=== PATIENT | male | born 2000 | race Two or more races ===

== ENCOUNTER 2025-04-29 18:59 | Emergency (ER) | payer OTHER, SELFPAY ==
[2025-04-29 19:03] VITALS: BMI 33.2
[2025-04-29 19:22] VITALS: BP 122/70; PULSE 54; RESP 18; TEMP 37.3; O2SAT 96
[2025-04-29] MEDS: IBUPROFEN TAB 600 MG TABLET PO (19:49)
--- NOTE | 2025-04-29 19:53 | PD.EDHAND ---
Upper Extremity Injury RME/HPI General Chief Complaint: Hand/Wrist Problems Stated Complaint: HAND AND WRIST PAIN AND NUMBNESS Time Seen by Provider: 04/29/25 19:23 Arrival date/time: 04/29/25 18:59 Related Data Previous Rx's ?Medication ?Instructions ?Recorded ibuprofen 600 mg tablet 600 mg PO Q8H PRN pain #30 tabs 04/29/25 Allergies Allergy/AdvReac Type Severity Reaction Status Date / Time No Known Allergies Allergy Verified 04/29/25 19:09 Past Medical History Social History SMOKING STATUS: Never smoker ED Exam Narrative Physical exam: A&O, afebrile and non-toxic appearing 24-year-old male, no acute distress. Lung are clear, RRR, Abdomen is non-distended. No C-spine point tenderness. No trapezius tenderness bilaterally. No tenderness to the shoulders, upper arms, elbows or forearms. No tenderness to the wrist, hands or fingers. Equal game show host strength, sensory and motor are intact. DTRs intact to bilateral upper extremities. Positive Phalen's and Tinel's sign produces tingling and shooting pain to the middle finger bilaterally. Moves all extremities well. Course Course Course Narrative: Patient was given ibuprofen 600 mg p.o. Bilateral wrists were wrapped in Juan David wrap's. Work comp paperwork completed. He was discharged home in stable condition with instructions to follow-up with his Worker's Compensation doctor as recommended by his employer. Quality Measures none Orders Category Date Time Status juan david wrap [Splint / Immobilizer] STAT Care 04/29/25 19:44 Active Ibuprofen Tab [Motrin Tab] Med 04/29/25 19:44 Discontinued 600 mg PO X1 ONE Vital Signs Vital signs: Vital Signs Temperature 99.1 F 04/29/25 19:22 Pulse Rate 54 L 04/29/25 19:22 Respiratory Rate 18 04/29/25 19:22 Blood Pressure 122/70 04/29/25 19:22 Pulse Oximetry (%) 96 04/29/25 19:22 Oxygen Delivery Method Room Air 04/29/25 19:22 Extremity Injury MDM Narrative MDM Narrative:: Work comp paperwork completed. Patient data External records reviewed:: None Clinical information provided by:: patient Social determinants that could affect healthcare access:: none Patient has the following chronic illnesses:: N/A How is presenting disease/condition affected by chronic disease/condition?: no chronic disease Evaluation data The following diagnostics were reviewed and interpreted by me:: other (specify) (N/A) Lab and/or radiology exams considered but not ordered:: N/A Interpretation Summary: N/A Medications / Prescriptions Medications or Prescriptions considered but not ordered:: N/A Medication administrations:: Medication Administration History Discontinued Medications Ibuprofen (Ibuprofen Tab 600 Mg Tablet) 600 mg PO X1 ONE Stop: 04/29/25 19:45 Last Admin: 04/29/25 19:49 Dose: 600 mg Documented By: ARA As above Consultations Consultation(s) initiated? (list below): No Diagnosis Upper Extremity Injury Differential Diagnosis: sprain and strain of wrist and other (Bilateral carpal tunnel syndrome.) Most likely diagnosis given after review of the tests above:: Bilateral carpal tunnel syndrome. Admission Indicated Admission indicated?: not indicated Explain why admission is indicated or not indicated:: Patient is stable for discharge Admission Request Was there a request for admission?: No Admission Attestation Admission request attestation: N/A Disposition Plan Disposition Plan: Discharge Discharge Attestation Discharge Attestation: The patient and all family members were given an opportunity to ask questions and understood the discharge instructions. Discharge instructions specifically effects, indications for sooner follow up or return to the emergency department, and the expected course of current diagnosis. Patient condition: Stable Discharge Plan Plan Patient Disposition: HOME (Self Care) Discharge Disposition comment: Stable Prescriptions/Referrals Prescriptions/Med Rec: New ibuprofen 600 mg tablet 600 mg PO Q8H PRN (Reason: pain) Qty: 30 0RF Problem List Clinical Impression: Carpal tunnel syndrome on both sides, Neuropathy Patient/Caregiver Discharge Instructions Education Materials: ED Carpal Tunnel Syndrome Additional Instructions: Take the ibuprofen as prescribed. Do not take more than is prescribed. Wear the Juan David wrap's to help control the inflammation which will help the pain. Follow-up with your Worker's Compensation doctor as indicated by your employer. Return to the Emergency Department for any new or worsening symptoms. Print Language: Citizen Of [place] Stand Alone Forms: Edyta Award Info., Work/School Release, Patient Portal Info Letter PA/CAREY Supervising Physician PA/CAREY Supervising Physician: Dr. Quick
== END 2025-04-29 20:46 | disposition home or self-care (01) ==
PROVIDERS: Emergency Provider Emergency Medicine
DX: G56.03 Carpal tunnel syndrome, bilateral upper limbs (principal); G62.9 Polyneuropathy, unspecified
CPT/HCPCS: 99283; A9270